=== PATIENT | female | born 1975 | race Native Hawaiian/Other Pacific Islander ===

== ENCOUNTER 2020-12-12 19:37 | Inpatient (IN) | payer OTHER ==
[2020-12-12] VITALS (9 sets, daily range): BP systolic 114–136; BP diastolic 68–88; TEMP 98.8–99.3; Ht 154.9 cm; Wt 79.6 kg
[~2020-12-12] VITALS: Ht 154.9 cm; Wt 79.6 kg
[2020-12-12 21:03] LABS: PLATELET COUNT 357 K/uL (152-353)
[2020-12-12 21:15] LABS: POTASSIUM 3.5 mmol/L (3.6-5.2); SODIUM 136 mmol/L (136-145)
--- NOTE | 2020-12-12 23:30 | NUR ---
PATIENT ADMITTED TO ROOM #1109 VIA WHEELCHAIR FROM THE ER. PATIENT ALERT AND ORIENTED X 3, SKIN WARM AND DRY AND NO ACUTE DISTRESS NOTED AT THIS TIME. PATIENT ORIENTED TO ROOM AND CALL SYSTEM AND VERBALIZES UNDERSTANDING. DENIES ANY QUESTIONS OR REQUESTS AT THIS TIME. CALL LIGHT WITHIN REACH. WILL CONTINUE TO MONITOR.
[2020-12-13 00:01] VITALS: BP 126/80; TEMP 99.1
[2020-12-13 04:00] VITALS: BP 130/74; TEMP 102
--- NOTE | 2020-12-13 04:20 | NUR ---
PATIENT GIVEN ACETAMINOPHEN 650MG PO FOR ORAL TEMP 102.7 PER MD ORDERS, PATIENT TOLERATED WELL. CALL LIGHT WITHIN REACH. WILL CONTINUE TO MONITOR.
[2020-12-13 05:21] LABS: PLATELET COUNT 262 K/uL (152-353)
--- NOTE | 2020-12-13 05:30 | NUR ---
PATIENTS ORAL TEMP NOW 98.3, NO ACUTE DISTRESS NOTED AT THIS TIME. CALL LIGHT WITHIN REACH. WILL CONTINUE TO MONITOR.
[2020-12-13] MEDS ORDERED: OMEPRAZOLE DR20 MG PO (06:57)
[2020-12-13 08:00] VITALS: BP 109/66; TEMP 98.7
--- NOTE | 2020-12-13 08:00 | NUR ---
PT IS IN LF AWAKE AND ALERT. RT LEG IS EDEMATOUS AND RED, REDNESS HAS SPREAD BEYOUND THE OUTLINE TRACED BY ER DOCTOR LAST NIGHT. PT DENIES PAIN AT THIS TIME AND SHOWS NO SIGNS OF DISTRESS. PT STATES "IT ONLY HURTS WHEN I WALK".
--- NOTE | 2020-12-13 09:37 | NUR ---
PT HAS BEEN GIVEN 2 PILLOWS TO PROP THE RT LEG ON. PT STILL DENIES ANY PAIN AT THIS TIME. CALL LIGHT IS WITHIN REACH AND INSTRUCTED TO CALL IF SHE NEEDS ANYTHING.
[2020-12-13 12:00] VITALS: BP 116/74; TEMP 98.4
--- NOTE | 2020-12-13 13:13 | NUR ---
PT'S IV PUMP BEGAN BEEPING FOR A NEW BAG OF FLUIDS. AFTER FLUIDS WERE HUNG FOR ABOUT 4 MINUTES THE IV PUMP BEGAN TO BEEP STATING THAT THERE WAS AIR IN THE LINE. WHILE IN ROOM FIXING THE IV LINE, PT STATED "I FEEL HOT CAN YOU CHECK MY TEMPERATURE AGAIN". TEMPERATURE WAS CHECKED ORALLY AND WAS 98.4. PT DID NOT EAT BUT 25% OF LUNCH STATING "MY TASTE JUST DOES NOT SEEM RIGHT TODAY, MAYBE ITS BECAUSE OF THE MEDICINES." ELECTRON TUBE ASSEMBLER ENSURED HER THAT IT IS A POSSIBILITY THAT THE MEDICATIONS COULD CAUSE THAT BUT IF IT CONTINUES TO LET ELECTRON TUBE ASSEMBLER KNOW.
--- NOTE | 2020-12-13 14:12 | NUR ---
PT REQUESTED TO GET A SHOWER. TOWELS, WASHCLOTHS, AND BODY WASH WERE SUPPLIED TO PT. IV HAS BEEN WRAPPED TO BE KEPT DRY. PT HAS BEEN EDUCATED TO CALL IF SHE NEEDS HELP.
[2020-12-13 14:55] LABS: POTASSIUM 3.5 mmol/L (3.6-5.2)
[2020-12-13 16:00] VITALS: BP 130/94; TEMP 101.2
--- NOTE | 2020-12-13 17:12 | NUR ---
PT TEMP 101.2 AT THIS TIME, TYLENOL ADMINISTERED AND ZOSYN INFUSING WIHTOUT DIFFICULTY, WILL REASSESS TEMP, NAD NOTED, PT REPORTS NO PAIN AT THIS TIME, WILL CONTINUE TO MONITOR, CALL LIGHT WITHIN REACH
--- NOTE | 2020-12-13 18:07 | NUR ---
PT TEMP RECHECKED AXILLARY RESULTING IN A TEMP TO 101.7. DOCTOR MADE AWARE OF TEMP. NEW ORDERS GIVEN, IBUPROFEN 600MG Q6H PRN TO BE ALTERNATED WITH TYLENOL. WATING ON IBUPROFEN TO BEE VERIFIED BY PHARMACY AT THIS TIME.
--- NOTE | 2020-12-13 19:50 | NUR ---
ENTERED PATIENT'S ROOM AT THIS TIME. PATIENT RESTING QUIETLY IN BED WATCHING TV. RESPIRATIONS EVEN AND UNLABORED. NAD NOTED. SHE DENIES PAIN AT THIS TIME. 20G TO LEFT AC INTACT. NO SWELLING OR ERYTHEMA NOTED. NS INFUSING @ 100ML/HR. RLE ELEVATED ON TWO PILLOWS. REDNESS AND SOME SWELLING NOTED TO RLE. WARM TO TOUCH. A FEW AREAS OF REDNESS NOTED TO RIGHT UPPER THIGH. SHE DOES REPORT SOME PAIN WITH WEIGHT-BEARING. INSTRUCTED TO KEEP ELEVATED MUCH POSSIBLE. CURRENT TEMP IS 98.8. BED LOCKED AND IN LOWEST POSITION. CALL LIGHT WITHIN REACH.
[2020-12-13 20:00] VITALS: BP 123/63; TEMP 98.8
--- NOTE | 2020-12-13 23:30 | NUR ---
WEDGE PILLOW PLACED UNDER RLE TO MAINTAIN ELEVATION. REDNESS TO RIGHT UPPER THIGH APPEARS TO BE IMPROVING. AREAS MARKED TO MONITOR SPREAD OF REDNESS. PATIENT DENIES ANY CONCERNS OR COMPLAINTS AT THIS TIME. NAD NOTED. RESPIRATIONS EVEN AND UNLABORED. PATIENT IN LOW SALDANA'S POSITION WATCHING TV. CALL LIGHT WITHIN REACH.
[2020-12-14] VITALS (7 sets, daily range): BP systolic 100–139; BP diastolic 50–83; TEMP 98.5–99.6
[2020-12-14 05:59] LABS: PLATELET COUNT 220 K/uL (152-353)
--- NOTE | 2020-12-14 06:00 | NUR ---
IN TO CHECK ON PATIENT. REDNESS TO RIGHT UPPER THIGH IS BARELY VISIBLE AT THIS TIME. SHE CONTINUES TO KEEP EXTREMITY ELEVATED. 20G TO LEFT AC INTACT. NO SWELLING OR ERYTHEMA NOTED. NS INFUSING @ 100ML/HR. SHE C/O NAUSEA. ZOFRAN 4MG GIVEN VIA IVP. EMESIS BAG PROVIDED ALSO. RESPIRATIONS EVEN AND UNLABORED. CALL LIGHT WITHIN REACH. SNACKS OR DRINK WAS OFFERED AND DECLINED.
--- NOTE | 2020-12-14 12:18 | NUR ---
PT C/O REFLUX DESPITE HAVING TAKEN PROTONIX WITH AM MEDS. DR. MARTE NOTIFIED, V/O GIVEN FOR GI COCKTAIL. MED PULLED AND ADMIN
--- NOTE | 2020-12-14 12:57 | NUR ---
PT STATED GI COCKTAIL WAS EFFECTIVE. PT ALSO REFUSED OFFERED LUNCH TRAY AND REQUESTED BLAND FOODS FOR DINNER AND A BANANA. NOTIFIED KITCHEN OF REQUEST- PER STAFF, THEY WON'T HAVE BANANAS UNTIL TOMORROW. CORK TIPPER REQUESTED FRUIT AND BLAND FOODS FOR PATIENT.
--- NOTE | 2020-12-14 17:05 | NUR ---
PT C/O NAUSEA- ZOFRAN ADMIN ORDERED. REDNESS TO RLE STILL WITHIN MARKED AREAS WITH NO INCREASE IN PAIN OR SWELLING. AT BEDSIDE.
--- NOTE | 2020-12-14 17:58 | NUR ---
PT C/O HEAD AND LEG PAIN /O- PAIN MEDS ADMIN PER MD ORDER. AT BEDSIDE.
--- NOTE | 2020-12-14 18:52 | NUR ---
ASSISTED PT WITH POSITIONING IN BED, NAD NOTED AT THIS TME. CALL LIGHT IN EASY REACH. BED LOW, LOCKED. SR UP X2 FOR SAFETY. WILL CONTINUE TO MONITOR.
--- NOTE | 2020-12-14 20:00 | NUR ---
PT LAYING WITH RLE ELEVATED ON WEDGE. PT WITH CELLULITS TO RLE. WARM TO THE TOUCH. PT IS WATCHING TELEVISION. PT HAS BEEN ABLE TO EAT A BANANA WITHOUT N/V. EDUCATED PT ON BACTRIM AND SIDE EFFECTS. PT VOICED UNDERSTANDING. BEDSIDE TABLE IN EASY REACH. INSTRUCTED PT TO CALL FOR ASSISTANCE. PT VOICED UNDERSTANDING.
[2020-12-15 04:02] VITALS: BP 95/55; TEMP 98.4
[2020-12-15 05:40] LABS: PLATELET COUNT 228 K/uL (152-353)
[2020-12-15 05:55] LABS: POTASSIUM 3.8 mmol/L (3.6-5.2)
--- NOTE | 2020-12-15 06:17 | NUR ---
REASSESSED PT'S BLOOD PRESSURE. 117/70 AT THIS TIME.
[2020-12-15 08:00] VITALS: BP 108/59; TEMP 98.4
[2020-12-15 12:00] VITALS: BP 127/83; TEMP 97.8
[2020-12-15] MEDS ORDERED: 904272561 PO (12:01)
--- NOTE | 2020-12-15 15:00 | NUR ---
PROVIDED PT DISCHARGE EDUCATION REGARDING DIAGNOSIS AND NEW MEDICATION, BACTRIM ALONG WITH FOLLOW UP APPOINTMENT WITH [facility]. REMOVED IV ACCESS WITH TIP INTACT WITHOUT DIFFICULTY. PT VOICED UNDERSTANDING OF DISCHARGE INSTRUCTIONS AND FOLLOW UP APPOINTMENT. PT AWAITING TO BE PICKED UP BY .
--- NOTE | 2020-12-15 16:38 | NUR ---
PT TAKEN TO POV VIA WHEELCHAIR WITH AT BEDSIDE. NAD NOTED.
== END 2020-12-15 16:36 | disposition home or self-care (01) | DRG 603 ==
LOC: ED 19:37 → MED/SURG 22:00 → UNDODEPER 12-15 23:28
PROVIDERS: ADMIT Emergency Medicine Emergency Medical Services; ATTEND Internal Medicine
DX: L03.115 Cellulitis of right lower limb (principal); K21.9 Gastro-esophageal reflux disease without esophagitis; E87.6 Hypokalemia; E03.8 Other specified hypothyroidism; E83.42 Hypomagnesemia
CPT/HCPCS: 36415; 80048; 80053; 80307; 81000; 83605; 83735; 84484; 85027; 85610; 87040; 87635; 93005; 96360; 96365; 96366; 96367; 96372; 96375; 99284; J1650; J1885; J2405; J2543; J3370; U0003

== ENCOUNTER 2021-06-24 22:08 | Emergency (ER) | payer OTHER ==
[~2021-06-24] VITALS: Ht 154.9 cm; Wt 72.6 kg
[~2021-06-24 22:08] MED LIST: 904272561 PO; OMEPRAZOLE DR20 MG PO
[2021-06-24 23:20] VITALS: BP 136/98; TEMP 98.9
== END 2021-06-24 23:20 | disposition home or self-care (01) ==
LOC: ED 22:08
DX: J06.9 Acute upper respiratory infection, unspecified (principal); J40 Bronchitis, not specified as acute or chronic; F17.210 Nicotine dependence, cigarettes, uncomplicated; Z20.822 Contact with and (suspected) exposure to COVID-19
CPT/HCPCS: 81000; 81025; 87502; 87635; 87651; 96372; 99283; J0696; J2930; U0003

== ENCOUNTER 2022-06-06 20:38 | Emergency (ER) | payer OTHER ==
[~2022-06-06] VITALS: Ht 154.9 cm; Wt 77.1 kg
[2022-06-06 21:23] LABS: PLATELET COUNT 487 K/uL (152-353)
[2022-06-06 23:25] VITALS: BP 116/70; TEMP 98.1
== END 2022-06-06 23:25 | disposition home or self-care (01) ==
LOC: ED 20:38
PROVIDERS: Emergency Medicine Emergency Medical Services
DX: N23 Unspecified renal colic (principal)
CPT/HCPCS: 36415; 80053; 81000; 82150; 83690; 85008; 85027; 96360; 96374; 96375; 99284; J1885; J2270; J2405; J3490; Q9963

== ENCOUNTER 2023-02-13 21:03 | Emergency (ER) | payer OTHER ==
[~2023-02-13] VITALS: Ht 154.9 cm; Wt 80.3 kg
[2023-02-13 21:17] VITALS: BP 138/83; TEMP 98.5
== END 2023-02-13 22:57 | disposition home or self-care (01) ==
LOC: ED 21:03
DX: H66.92 Otitis media, unspecified, left ear (principal); J02.9 Acute pharyngitis, unspecified
CPT/HCPCS: 87651; 99282